=== PATIENT | female | born 1980 | race Caucasian/White ===

== ENCOUNTER 2019-06-06 14:36 | Emergency (ER) | payer OTHER ==
[~2019-06-06] VITALS: Ht 162.6 cm; Wt 90.7 kg
--- NOTE | 2019-06-06 14:52 | PHYS DOC ---
Adult General Chief Complaint Chief Complaint: MECHANICAL FALL HPI HPI Patient is a 38 year old female with no significant medical history who presents to the ED today complaining of mild to moderate right sided headache, neck pain, low back pain and left elbow pain and left hand pain that began today after falling. 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 Patient denies any loss of consciousness. She reports hitting her head on the ground. Denies being on any anticoagulant. Denies any pain radiating to bilateral lower extremities, denies any loss of bowel bladder function. Review of Systems Review of Systems Constitutional: Denies fever or chills [] Eyes: Denies change in visual acuity, redness, or eye pain [] HENT: Denies nasal congestion or sore throat [] Respiratory: Denies cough or shortness of breath [] Cardiovascular: No additional information not addressed in HPI [] GI: Denies abdominal pain, nausea, vomiting, bloody stools or diarrhea [] : Denies dysuria or hematuria [] Musculoskeletal: Reports low back pain, neck pain, left hand and left elbow pain Integument: Denies rash or skin lesions [] Neurologic: Reports headache, denies focal weakness or sensory changes [] All other systems were reviewed and found to be within normal limits, except as documented in this note. Current Medications Current Medications Current Medications Medications (Trade) Dose Ordered Sig/[facility] Start Time Stop Time Status Last Admin Dose Admin Acetaminophen/ Hydrocodone Bitart (Lortab 5/325) 1 tab 1X ONCE 06/06/19 15:00 06/06/19 15:01 DC 06/06/19 14:58 1 TAB Cyclobenzaprine HCl (Flexeril) 10 mg 1X ONCE 06/06/19 15:00 06/06/19 15:01 DC 06/06/19 14:57 10 MG Ondansetron HCl (Zofran Odt) 4 mg 1X ONCE 06/06/19 15:00 06/06/19 15:01 DC 06/06/19 15:17 4 MG Allergies Allergies Allergies Coded Allergies Type Severity Reaction Last Updated Verified cinnamon Allergy Intermediate 06/06/19 Yes Physical Exam Physical Exam Constitutional: Well developed, well nourished, no acute distress, non-toxic appearance. [] HENT: Normocephalic, atraumatic, bilateral external ears normal, oropharynx moist, no oral exudates, nose normal. [] Eyes: PERRLA, EOMI, conjunctiva normal, no discharge. [] Neck: Patient is in a c-collar. Limited range of motion to the cervical spine due to the seizure. Slight midline cervical spine tenderness, supple, no stridor. [] Cardiovascular:Heart rate regular rhythm, no murmur [] Lungs & Thorax: Bilateral breath sounds clear to auscultation [] Abdomen: Bowel sounds normal, soft, no tenderness, no masses, no pulsatile masses. [] Skin: Warm, dry, no erythema, no rash. [] Back: Diffuse paraspinal muscle tenderness to bilateral lumbar spine as well as slight midline lumbar spine tenderness, no CVA tenderness. [] Extremities: No tenderness, no cyanosis, no clubbing, ROM intact, no edema. [] Neurologic: Alert and oriented X 3, normal motor function, normal sensory function, no focal deficits noted. Cranial nerves II through XII intact Psychologic: Affect normal, judgement normal, mood normal. [] Current Patient Data Vital Signs Vital Signs Date Time Temp Pulse Resp B/P (MAP) Pulse Ox O2 Delivery O2 Flow Rate FiO2 06/06/19 16:53 64 24 139/65 (89) 98 Room Air 06/06/19 14:36 97.6 97.6 EKG EKG [] Radiology/Procedures Radiology/Procedures []PROCEDURE: [facility] Compliance Statement: One or more of the following individualized dose reduction techniques were utilized for this examination: 1. Automated exposure control 2. Adjustment of the mA and/or kV according to patient size 3. Use of iterative reconstruction technique CT head and cervical spine without contrast 06/06/2019 3:05 PM INDICATION: Pain, fall COMPARISON: None available TECHNIQUE: Multiple axial CT images of the head were obtained from skull base through the vertex without intravenous contrast. Multiple axial CT images of the cervical spine were obtained without intravenous contrast. Coronal and sagittal reformats are provided. FINDINGS: Head: Ventricles, sulci and basal cisterns are within normal limits. There is no hydrocephalus. Rasheed-white matter differentiation is normal. There is no acute intracranial hemorrhage. There is no mass, mass effect or midline shift. Posterior fossa is normal in appearance. Visualized portions of the orbits are normal. Mild mucosal thickening of the right maxilla sinus. Mastoid air cells are well aerated. Scalp and calvaria are normal. Cervical spine: Alignment of the cervical spine is normal. Skull base is intact. Craniocervical junction is normal in appearance. Atlantoaxial articulation is normal. Vertebral body heights are maintained without evidence for acute fracture. Mild disc height loss at C5-C6 and C6-C7. Facet joints are within normal limits. Mild uncovertebral joint disease at C5-C6. No significant osseous neural foraminal stenosis. No significant osseous spinal canal stenosis. Transverse foramen are intact. There is no prevertebral soft tissue swelling. Thyroid gland is normal in appearance. Visualized portions of the lung apices are normal without evidence for suspicious pulmonary nodule or infiltrate. Lumbar: Lung bases are clear. Adrenal glands are normal in appearance. There is a 3 mm nonobstructing calculi present interpolar right kidney. Uterus and adnexa are normal by CT. No suspicious retroperitoneal abnormality. There is no acute fracture or malalignment of the lumbar spine. Disc heights are maintained. No epidural hematoma. Posterior elements are intact. IMPRESSION: 1. No acute intracranial hemorrhage. 2. No acute fracture or malalignment of the cervical spine. Mild degenerative changes at C5-C6 and C6-C7. 3. No acute fracture or malalignment of lumbar spine. Electronically signed by: Tomy Livingston MD (06/06/2019 3:23 PM) [id number] DICTATED and SIGNED BY: TOMY LIVINGSTON MD DATE: 06/06/19 1523 PROCEDURE: ELBOW LEFT 3V HAND LEFT 3V, ELBOW LEFT 3V 06/06/2019 2:48 PM INDICATION: Pain, fall COMPARISON: None available. TECHNIQUE: 3 views of left hand and 3 views of the left elbow are provided. FINDINGS/ IMPRESSION: 1. Left hand: There is no acute fracture or dislocation. Joint spaces are maintained. Bone mineralization is within normal limits. Regional soft tissues are within normal limits. There is no soft tissue gas or osseous erosion. No radiopaque foreign body. 2. Left elbow: No significant elbow joint effusion although there is minimal elevation of anterior fat pad. There is no acute fracture or dislocation. Joint spaces are maintained. Bone mineralization is within normal limits. Regional soft tissues are within normal limits. There is no soft tissue gas or osseous erosion. No radiopaque foreign body. Electronically signed by: Tomy Livingston MD (06/06/2019 4:28 PM) [id number] DICTATED and SIGNED BY: TOMY LIVINGSTON MD DATE: 06/06/19 2259 Course & Med Decision Making Course & Med Decision Making Pertinent Labs and Imaging studies reviewed. (See chart for details) This is a 38-year-old female patient presenting to the ED today to be evaluated after falling. Patient is complaining of posterior head pain, neck pain, left hand pain, left elbow pain and low back pain. CT of the head, cervical spine and lumbar spine are negative for any acute findings. Left wrist and left elbow x-rays interpreted by radiologist were negative for acute fracture or dislocation. Sling provided for the left upper extremity applied by the technician support [employer], neurovascular exam is intact. Provided orthopedic doctor for follow-up. Ice elevation encouraged. Dragon Disclaimer Dragon Disclaimer This electronic medical record was generated, in whole or in part, using a voice recognition dictation system. Departure Departure Impression: Primary Impression: Fall from standing Additional Impressions: Acute cervical sprain Lumbar contusion Left elbow contusion Sprain of left wrist Disposition: HOME, SELF-CARE Condition: STABLE Referrals: JAYJAY PIERRE MD follow up with your doctor or orthopedic doctor provided in 1 week Patient Instructions: Cervical Sprain, [id number], Contusion, [id number] Additional Instructions: You were evaluated after falling, your CT of the head cervical spine and lumbar spine were negative for any acute findings. Your Xrays of the left wrist and elbow were negative for any fractures. Try to ice and elevate the affected areas. Take the prescribed pain medicine as needed for severe pain follow-up with the provided specialist or your own doctor in 1-2 weeks Scripts Hydrocodone/Apap 5-325 (NORCO 5-325 TABLET) 1 Each Tablet 1-2 TAB PO Q6-8HRS PRN for PAIN, #20 TAB Prov: MUTUNGA,SELVIN RIFFLER TENDER 06/06/19 Cyclobenzaprine Hcl (CYCLOBENZAPRINE HCL) 10 Mg Tablet 1 TAB PO TID, #30 TAB Prov: MUTUNGA,SELVIN RIFFLER TENDER 06/06/19 Problem Qualifiers Primary Impression: Fall from standing Encounter type: initial encounter Qualified Codes: W19.XXXA - Unspecified fall, initial encounter Additional Impressions: Acute cervical sprain Encounter type: initial encounter Qualified Codes: S13.9XXA - Sprain of joints and ligaments of unspecified parts of neck, initial encounter Lumbar contusion Encounter type: initial encounter Qualified Codes: S30.0XXA - Contusion of lower back and pelvis, initial encounter Left elbow contusion Encounter type: initial encounter Qualified Codes: S50.02XA - Contusion of left elbow, initial encounter Sprain of left wrist Encounter type: initial encounter Qualified Codes: S63.502A - Unspecified sprain of left wrist, initial encounter SELVIN ROBERTS RIFFLER TENDER Jun 06, 2019 14:52
[2019-06-06] MEDS ORDERED: HYDROcodone/APAP 5/325MG 1 TAB TABLET PO ONE (15:00)
[2019-06-06] MEDS ORDERED: ONDANSETRON ODT 4 MG TAB.RAPDIS. PO ONE (15:00)
[2019-06-06] MEDS ORDERED: CYCLOBENZAPRINE 10 MG TABLET. PO ONE (15:00)
--- NOTE | 2019-06-06 15:25 | RAD ---
[facility] Compliance Statement: One or more of the following individualized dose reduction techniques were utilized for this examination: 1. Automated exposure control 2. Adjustment of the mA and/or kV according to patient size 3. Use of iterative reconstruction technique CT head and cervical spine without contrast 06/06/2019 3:05 PM INDICATION: Pain, fall COMPARISON: None available TECHNIQUE: Multiple axial CT images of the head were obtained from skull base through the vertex without intravenous contrast. Multiple axial CT images of the cervical spine were obtained without intravenous contrast. Coronal and sagittal reformats are provided. FINDINGS: Head: Ventricles, sulci and basal cisterns are within normal limits. There is no hydrocephalus. Rasheed-white matter differentiation is normal. There is no acute intracranial hemorrhage. There is no mass, mass effect or midline shift. Posterior fossa is normal in appearance. Visualized portions of the orbits are normal. Mild mucosal thickening of the right maxilla sinus. Mastoid air cells are well aerated. Scalp and calvaria are normal. Cervical spine: Alignment of the cervical spine is normal. Skull base is intact. Craniocervical junction is normal in appearance. Atlantoaxial articulation is normal. Vertebral body heights are maintained without evidence for acute fracture. Mild disc height loss at C5-C6 and C6-C7. Facet joints are within normal limits. Mild uncovertebral joint disease at C5-C6. No significant osseous neural foraminal stenosis. No significant osseous spinal canal stenosis. Transverse foramen are intact. There is no prevertebral soft tissue swelling. Thyroid gland is normal in appearance. Visualized portions of the lung apices are normal without evidence for suspicious pulmonary nodule or infiltrate. Lumbar: Lung bases are clear. Adrenal glands are normal in appearance. There is a 3 mm nonobstructing calculi present interpolar right kidney. Uterus and adnexa are normal by CT. No suspicious retroperitoneal abnormality. There is no acute fracture or malalignment of the lumbar spine. Disc heights are maintained. No epidural hematoma. Posterior elements are intact. IMPRESSION: 1. No acute intracranial hemorrhage. 2. No acute fracture or malalignment of the cervical spine. Mild degenerative changes at C5-C6 and C6-C7. 3. No acute fracture or malalignment of lumbar spine. Electronically signed by: Albania Ramos MD (06/06/2019 3:23 PM) [id number]
--- NOTE | 2019-06-06 16:31 | RAD ---
HAND LEFT 3V, ELBOW LEFT 3V 06/06/2019 2:48 PM INDICATION: Pain, fall COMPARISON: None available. TECHNIQUE: 3 views of left hand and 3 views of the left elbow are provided. FINDINGS/ IMPRESSION: 1. Left hand: There is no acute fracture or dislocation. Joint spaces are maintained. Bone mineralization is within normal limits. Regional soft tissues are within normal limits. There is no soft tissue gas or osseous erosion. No radiopaque foreign body. 2. Left elbow: No significant elbow joint effusion although there is minimal elevation of anterior fat pad. There is no acute fracture or dislocation. Joint spaces are maintained. Bone mineralization is within normal limits. Regional soft tissues are within normal limits. There is no soft tissue gas or osseous erosion. No radiopaque foreign body. Electronically signed by: Albania Ramos MD (06/06/2019 4:28 PM) [id number]
[2019-06-06] MEDS ORDERED: HYDR-3164 PO (16:47)
[2019-06-06] MEDS ORDERED: CYCL10TA2 PO (16:47)
[2019-06-06 16:53] VITALS: BP 139/65
== END 2019-06-06 17:00 | disposition home or self-care (01) ==
LOC: ER 14:36
DX: S13.9XXA Sprain of joints and ligaments of unspecified parts of neck, initial encounter (principal); S63.502A Unspecified sprain of left wrist, initial encounter; S30.0XXA Contusion of lower back and pelvis, initial encounter; S50.02XA Contusion of left elbow, initial encounter; R51 Headache; Z91.018 Allergy to other foods; W18.39XA Other fall on same level, initial encounter; Y93.89 Activity, other specified; Y92.89 Other specified places as the place of occurrence of the external cause; Y99.8 Other external cause status
CPT/HCPCS: 70450; 72125; 72131; 73080; 73130; 99284; Q0162; 99283